=== PATIENT | male | born 1970 | race Caucasian/White ===

== ENCOUNTER 2018-10-16 12:29 | Emergency (ER) | payer OTHER ==
[~2018-10-16] VITALS: Ht 188 cm; Wt 98.7 kg
--- NOTE | 2018-10-16 12:52 | NUR ---
FIRST CONTACT WITH PT. PT. HAS C/O DIZZINESS THAT BEGAN TODAY. PT. STATES IT BECAME WORSE DRIVING OVER THE PASS. PT. REPORTS DIARRHEA. PT TOOK ASPIRIN ABOUT 12PM TODAY. PT'S AOX4. RESPS EVEN AND UNLABORED. ALL MONITORS IN PLACE. CALL LIGHT WITHIN REACH. SINUS TACHY ON CARDIAC MONITORS RATE 120'S AT THIS TIME. PA AT BEDSIDE TO EVALUSTE AT THIS TIME.
[2018-10-16] MEDS ORDERED: SODIUM CHLORIDE FLUSH 10ML SYR IVF ONE (13:00)
[2018-10-16] MEDS ORDERED: LORazepam 2 MG/ML, 1ML IVPush ONE (13:00)
[2018-10-16] MEDS ORDERED: LORazepam 2 MG/ML, 1ML ONE (13:02)
--- NOTE | 2018-10-16 13:11 | NUR ---
PT MEDICATED PER EMAR. PT TOLERATED WELL.
[2018-10-16 13:15] LABS: BASOPHILS # (AUTO) 0.02 x10^3/uL (0-0.1); BASOPHILS % (AUTO) 0 % (0-1); EOSINOPHILS # (AUTO) 0.05 x10^3/uL (0-0.4); EOSINOPHILS % (AUTO) 1 % (1-7); LYMPHOCYTES # (AUTO) 1.12 x10^3/uL (1-3.4); LYMPHOCYTES % (AUTO) 11 % (22-44); MD NO; MEAN CORPUSCULAR HEMOGLOBIN 28.3 pg (27.5-34.5); MEAN CORPUSCULAR HGB CONC 33.1 g/dL (33.2-36.2); MEAN CORPUSCULAR VOLUME 85.7 fL (81-97); MEAN PLATELET VOLUME 7.5 fL (7.4-10.4); MONOCYTES # (AUTO) 0.82 x10^3/uL (0.2-0.8); MONOCYTES % (AUTO) 8 % (2-9); NEUTROPHILS # (AUTO) 8.08 x10^3/uL (1.8-6.8); NEUTROPHILS % (AUTO) 80 % (42-75); PLATELET COUNT 329 x10^3/uL (130-400); RED BLOOD COUNT 5.58 x10^6/uL (4.38-5.82); RED CELL DISTRIBUTION WIDTH 14.8 % (9.4-14.8)
[2018-10-16 13:25] LABS: ALBUMIN 4.3 g/dL (3.4-5.0); ANION GAP 10 mmol/L (5-15); CALCIUM 9.5 mg/dL (8.5-10.1); CHLORIDE 107 mmol/L (98-107); CREATININE 1.41 mg/dL (0.7-1.3)
[2018-10-16 13:28] LABS: TROPONIN I < 0.015 ng/mL (0.000-0.045)
--- NOTE | 2018-10-16 13:33 | NUR ---
PT IN CT NOW.
[2018-10-16 14:14] VITALS: BP 119/83
[2018-10-16] MEDS ORDERED: OMNIPAQUE 350 MG/ML, 100ML BOTTLE ONE (14:33)
== END 2018-10-16 14:35 | disposition home or self-care (01) ==
LOC: ED 14:29
DX: R42 Dizziness and giddiness (principal); I10 Essential (primary) hypertension; E78.00 Pure hypercholesterolemia, unspecified
CPT/HCPCS: 36415; 71045; 71275; 80048; 82040; 83880; 84484; 85025; 93005; 96374; 99284; J2060; Q9967